=== PATIENT | female | born 1980 | race African-American/Black ===

== ENCOUNTER → 2016-12-25 | Outpatient (CLI) | payer MEDICARE, MEDICAID ==
[~2016-12-25] MED LIST: GABA600T2 PO; OMEP-110 PO
== END | disposition home or self-care (01) ==
LOC: CFH 08:39
PROVIDERS: ATTEND Nurse Practitioner Family
DX: M47.896 Other spondylosis, lumbar region (principal); M47.27 Other spondylosis with radiculopathy, lumbosacral region
CPT/HCPCS: 72114

== ENCOUNTER 2017-01-28 14:06 | Emergency (ER) | payer MEDICARE, MEDICAID ==
[~2017-01-28] VITALS: Ht 162.6 cm; Wt 93.3 kg
[2017-01-28 14:11] VITALS: BP 146/92
[2017-01-28] MEDS ORDERED: ONDANSETRON ODT 4 MG PO PRN (15:00)
[2017-01-28] MEDS ORDERED: LORazepam 1MG TABLET PO ONE (15:00)
[2017-01-28] MEDS ORDERED: LORazepam 1MG TABLET ONE (15:20)
[2017-01-28] MEDS ORDERED: ONDANSETRON ODT 4 MG ONE (15:20)
== END 2017-01-28 15:49 | disposition home or self-care (01) ==
LOC: ED 15:42
DX: J00 Acute nasopharyngitis [common cold] (principal); F41.1 Generalized anxiety disorder; R11.0 Nausea; F17.210 Nicotine dependence, cigarettes, uncomplicated; Z88.0 Allergy status to penicillin
CPT/HCPCS: 99283; Q0162